=== PATIENT | male | born 1950 | race Caucasian/White ===

== ENCOUNTER 2019-06-23 08:50 | Outpatient (RCR) | payer SELFPAY | END 2019-06-23 23:59 | disposition home or self-care (01) | LOC: ANHAUDIO 08:50 | DX: Z46.1 Encounter for fitting and adjustment of hearing aid (principal) | CPT/HCPCS: 99199; V5014 ==

== ENCOUNTER 2019-10-29 14:48 | Outpatient (RCR) | payer SELFPAY | END 2019-10-29 23:59 | disposition home or self-care (01) | LOC: ANHAUDIO 14:48 | DX: Z46.1 Encounter for fitting and adjustment of hearing aid (principal) | CPT/HCPCS: 99199; V5014 ==

== ENCOUNTER 2020-09-23 11:25 | Outpatient (RCR) | payer SELFPAY | END 2020-09-23 23:59 | disposition home or self-care (01) | LOC: ANHAUDIO 11:25 | DX: Z46.1 Encounter for fitting and adjustment of hearing aid (principal) | CPT/HCPCS: V5014 ==

== ENCOUNTER 2021-01-18 12:54 | Outpatient (RCR) | payer SELFPAY | END 2021-01-18 23:59 | disposition home or self-care (01) | LOC: ANHAUDIO 12:54 | DX: Z46.1 Encounter for fitting and adjustment of hearing aid (principal) | CPT/HCPCS: 99199 ==

== ENCOUNTER 2021-06-14 14:00 | Outpatient (RCR) | payer MEDICARE, SELFPAY | END 2021-06-14 23:59 | disposition home or self-care (01) | LOC: ANHAUDIO 14:00 | DX: Z46.1 Encounter for fitting and adjustment of hearing aid (principal) | CPT/HCPCS: 99199; V5014 ==

== ENCOUNTER 2021-10-05 09:58 | Outpatient (RCR) | payer MEDICARE, SELFPAY | END 2021-10-05 23:59 | disposition home or self-care (01) | LOC: ANHAUDIO 09:58 | DX: Z46.1 Encounter for fitting and adjustment of hearing aid (principal) | CPT/HCPCS: 99199 ==

== ENCOUNTER 2022-10-23 12:19 | Outpatient (RCR) | payer MEDICARE, SELFPAY | END 2022-10-23 23:59 | disposition home or self-care (01) | LOC: ANHAUDIO 12:19 | DX: Z46.1 Encounter for fitting and adjustment of hearing aid (principal) | CPT/HCPCS: 99199; V5261 ==

== ENCOUNTER 2023-01-02 08:58 | Outpatient (CLI) | payer MEDICARE, SELFPAY | END 2023-01-02 08:59 | disposition home or self-care (01) | LOC: ANHAUDIO 08:59 | DX: Z97.4 Presence of external hearing-aid (principal) | CPT/HCPCS: 92557; 92567 ==